=== PATIENT | male | born 1965 | race Caucasian/White ===

== ENCOUNTER 2020-04-18 00:37 | Emergency (ER) | payer SELFPAY ==
--- NOTE | 2020-04-18 00:54 | EDM.PDOC ---
ED HPI GENERAL MEDICAL PROBLEM - General Chief Complaint: General Stated Complaint: MEDICAL CLEARANCE Time Seen by Provider: 04/18/20 00:48 Source of Information: Reports: Police History Limitations: Reports: No Limitations - History of Present Illness INITIAL COMMENTS - FREE TEXT/NARRATIVE: 54 yo M Was brought in by police for medical clearance prior to incarceration for DUI. PD breathlizer got 0.189. Patient has no physical complaints. Patient denies fever, headache, nausea, vomiting, diarrhea, chest pain, shortness of breath, abdominal pain. ROS: A 10-point review of systems, other than pertinent positives and negatives as stated per HPI, is otherwise negative PHYSICAL EXAM General: AOx4, GCS = 15, No distress HEENT: dry mucous membrane Neck: supple, no meningismus, no Kernig or Brudzinski Cardiac: S1S2 RRR Respiratory: CTAB, no crackles or rales, no wheezing Abdomen: Soft, nontender, no rebound or guarding, nondistended, no pulsatile mass. Back: nontender Musculoskeletal: NVI distally, no deformity Neuro: No focal deficits MEDICAL DECISION MAKING: Patient has no physical complaints today, patient exhibits normal vital signs, I do not suspect organic etiology warranting additional blood work or imaging studies. Patient is medically cleared to be discharged under police custody. - Related Data Allergies Allergy/AdvReac Type Severity Reaction Status Date / Time No Known Allergies Allergy Verified 04/18/20 00:56 Home Meds: Home Meds Lisinopril/Hydrochlorothiazide [Lisinopril-Hctz 10-12.5 mg Tab] 1 each PO 0 04/18/20 [History] amLODIPine Besylate [Norvasc] 2.5 mg PO DAILY 04/18/20 [History] ED ROS GENERAL - Review of Systems Review Of Systems: Comprehensive ROS is negative, except as noted in HPI. ED EXAM, GENERAL - Physical Exam Exam: See Below (see dictation) Course - Vital Signs Last Recorded V/S: Last Vital Signs Temp 97.6 F 04/18/20 00:59 Pulse Resp 18 04/18/20 00:59 BP 117/89 04/18/20 00:59 Pulse Ox 97 04/18/20 00:59 - Orders/Labs/Meds Orders: Active Orders 24 hr Category Date Time Status Blood Alcohol [ETHANOL BLOOD MEDICAL] [CHEM] Stat Lab 04/18/20 00:57 Ordered DRUG SCREEN, URINE [URCHEM] Stat Lab 04/18/20 01:12 Ordered Departure - Departure Time of Disposition: 01:00 Disposition: DC/Tfer to Court of Law En 21 Condition: Good Clinical Impression: Encounter for medical screening examination, Alcohol intoxication - Discharge Information *PRESCRIPTION DRUG MONITORING PROGRAM REVIEWED*: Not Applicable *COPY OF PRESCRIPTION DRUG MONITORING REPORT IN PATIENT ADILENE: Not Applicable Instructions: Medical Screening Exam Referrals: Aidan Smallwood MD [Primary Care Provider] - Forms: ED Department Discharge Additional Instructions: The following information is given to patients seen in the emergency department who are being discharged to home. This information is to outline your options for follow-up care. We provide all patients seen in our emergency department with a follow-up referral. The need for follow-up, as well as the timing and circumstances, are variable depending upon the specifics of your emergency department visit. If you don't have a primary care physician on staff, we will provide you with a referral. We always advise you to contact your personal physician following an emergency department visit to inform them of the circumstance of the visit and for follow-up with them and/or the need for any referrals to a consulting specialist. The emergency department will also refer you to a specialist when appropriate. This referral assures that you have the opportunity for follow-up care with a specialist. All of these measure are taken in an effort to provide you with optimal care, which includes your follow-up. Under all circumstances we always encourage you to contact your private physician who remains a resource for coordinating your care. When calling for follow-up care, please make the office aware that this follow-up is from your recent emergency room visit. If for any reason you are refused follow-up, please contact the [facility] Emergency Department at and asked to speak to the emergency department charge nurse. If you do not have a primary care doctor, please follow up with the clinics below within 3-5 days. [facility] [address], [place] [address] [facility] [address] [place] [address] Sepsis Event Note (ED) - Focused Exam Vital Signs: Vital Signs Temp Resp BP Pulse Ox 04/18/20 00:59 97.6 F 18 117/89 97 - My Orders Last 24 Hours: My Active Orders 04/18/20 00:57 Blood Alcohol [ETHANOL BLOOD MEDICAL] [CHEM] Stat 04/18/20 01:12 DRUG SCREEN, URINE [URCHEM] Stat - Assessment/Plan Last 24 Hours: My Active Orders 04/18/20 00:57 Blood Alcohol [ETHANOL BLOOD MEDICAL] [CHEM] Stat 04/18/20 01:12 DRUG SCREEN, URINE [URCHEM] Stat
== END 2020-04-18 01:46 ==
LOC: MW.ED 00:37
DX: F10.129 Alcohol abuse with intoxication, unspecified (principal); Z79.899 Other long term (current) drug therapy; Y90.7 Blood alcohol level of 200-239 mg/100 ml
CPT/HCPCS: 36415; 80305-QW; 80307; 99283

== ENCOUNTER 2021-12-27 06:19 | Emergency (ER) | payer BC | END 2021-12-27 07:34 | disposition home or self-care (01) | LOC: MW.ED 06:19 | DX: S42.254A Nondisplaced fracture of greater tuberosity of right humerus, initial encounter for closed fracture (principal); I10 Essential (primary) hypertension; Z91.013 Allergy to seafood; Z79.899 Other long term (current) drug therapy; W01.0XXA Fall on same level from slipping, tripping and stumbling without subsequent striking against object, initial encounter | CPT/HCPCS: 73060-26-RT; 73060-RT; 99283-25 ==

== ENCOUNTER 2024-07-23 22:06 | Emergency (ER) | payer SELFPAY ==
[2024-07-23] MEDS: Acetaminophen 500 MG Tab PO ONE (22:19)
[2024-07-23] MEDS: Bacitracin Oint 1 GM U/D Packet TOP ONE (22:19)
[2024-07-23] MEDS: Sodium Chloride 0.9% 1,000 ML IV ONE (22:19)
== END 2024-07-24 00:21 | disposition left against medical advice (07) ==
LOC: MW.ED 22:06
DX: S39.011A Strain of muscle, fascia and tendon of abdomen, initial encounter (principal); S00.81XA Abrasion of other part of head, initial encounter; S09.90XA Unspecified injury of head, initial encounter; I10 Essential (primary) hypertension; Z91.013 Allergy to seafood; Z79.899 Other long term (current) drug therapy; Z75.8 Other problems related to medical facilities and other health care; W10.1XXA Fall (on)(from) sidewalk curb, initial encounter
CPT/HCPCS: 70450; 71100; 96360; 99284; A9270; J7030; 99283